=== PATIENT | female | born 1965 | race American Indian/Alaskan Native ===

== ENCOUNTER 2017-01-08 06:49 | Emergency (ER) | payer MEDICAID ==
--- NOTE | 2017-01-08 08:27 | XRay Report ---
AP PELVIS: History: Pelvic pain, injury, vaginal swelling AP view of the pelvis shows normal pelvic contour and soft tissues. The hips are symmetric and within normal limits as are the sacroiliac joints. IMPRESSION: Normal pelvis.
--- NOTE | 2017-01-08 08:28 | XRay Report ---
RIGHT WRIST, 2 VIEWS: History: wrist pain, injury. Routine views demonstrate the carpal bones to be well mineralized with well preserved bony mineralization and interosseous joint spaces. The carpal and adjacent articular bones have normal contours. The surrounding soft tissues are unremarkable. IMPRESSION: Unremarkable right wrist.
--- NOTE | 2017-01-08 08:29 | XRay Report ---
RIGHT FOREARM, 2 views: History: Injury, pain. A transverse displaced fracture through the mid to distal shaft of the right radius is demonstrated. There is 1.3 cm medial displacement at the fracture site. No calcified callus. The radial head is intact. The ulna is unremarkable. Soft tissue swelling. IMPRESSION: Mildly displaced right radial shaft fracture.
[2017-01-08 08:34] LABS: Basophils % (Auto) 0.2 % (0.0-1.8); Eosinophils % (Auto) 3.6 % (0.0-4.3); Hematocrit 36.6 % (30.3-42.9); Hemoglobin 11.9 gm/dl (10.1-14.3); Mean Corpuscular HGB Conc 32 % (30-34); Mean Corpuscular Hemoglobin 32 pg (28-32); Mean Corpuscular Volume 98 fl (79-97); Platelet Count 174 K/mm3 (140-440); Red Blood Count 3.74 M/mm3 (3.65-5.03); Red Cell Distribution Width 14.5 % (13.2-15.2); White Blood Count 8.9 K/mm3 (4.5-11.0)
[2017-01-08 08:53] LABS: Albumin 3.5 g/dL (3.9-5); Albumin/Globulin Ratio 1.2 %; Alkaline Phosphatase 42 units/L (35-129); Anion Gap 14 mmol/L; BUN/Creatinine Ratio 17.77; Bilirubin,Total < 0.20 mg/dL (0.1-1.2); Blood Urea Nitrogen 16 mg/dL (7-17); Calcium 8.8 mg/dL (8.4-10.2); Carbon Dioxide 25 mmol/L (22-30); Chloride 107.1 mmol/L (98-107); Glucose 86 mg/dL (65-100); Potassium 4.4 mmol/L (3.6-5.0); Sodium 142 mmol/L (137-145); Total Protein 6.5 g/dL (6.3-8.2)
[2017-01-08 09:37] LABS: Alanine Aminotransferase 11 units/L (7-56)
[2017-01-08] MEDS ORDERED: MORPHINE IV ONE (09:45)
[2017-01-08] MEDS ORDERED: BOOSTRIX IM ONE (09:46)
[2017-01-08] MEDS ORDERED: XYLOCAINE 1% 20 mL INFILTRATI ONE (10:36)
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
[2017-01-08] MEDS ORDERED: NACL 0.9% 500 ML IR ONE (12:03)
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
--- NOTE | 2017-01-08 12:22 | Cat Scan Report ---
CT SCAN OF THE CERVICAL SPINE: HISTORY: Neck pain. TECHNIQUE: Contiguous 1.25 mm axial images of the cervical spine were obtained. Sagittal and coronal reformatted images. FINDINGS: There is normal alignment of the cervical spine. The body, pedicles and posterior ligaments appear normal. No evidence of fracture or subluxation is seen. Mild to moderate degenerative disc disease is identified at C5-6 and C6-7. The spinal canal appears normal. The prevertebral soft tissues appear normal. IMPRESSION: Unremarkable CT of the cervical spine. Mild degenerative changes. No acute injury is noted.
[2017-01-08 13:47] LABS: Bilirubin,Urine NEG (Negative); Blood,Urine NEG (Negative); Ketones,Urine NEG (Negative); Leukocyte Esterase,Urine TR (Negative); Mucus,Urine FEW /HPF; Nitrite,Urine NEG (Negative); Protein,Urine <15 mg/dL mg/dL (Negative); Urobilinogen,Urine < 2.0 mg/dL (<2.0)
[2017-01-08 13:59] VITALS: BP 109/64
== END 2017-01-08 14:27 | disposition home or self-care (01) ==
LOC: ED 06:49
DX: S52.391A Other fracture of shaft of radius, right arm, initial encounter for closed fracture (principal); S71.112A Laceration without foreign body, left thigh, initial encounter; G45.9 Transient cerebral ischemic attack, unspecified; R56.9 Unspecified convulsions; F17.200 Nicotine dependence, unspecified, uncomplicated; Y04.0XXA Assault by unarmed brawl or fight, initial encounter; Y93.89 Activity, other specified; Y92.89 Other specified places as the place of occurrence of the external cause; Y99.8 Other external cause status
CPT/HCPCS: 12001; 29105; 36415; 70450; 72125; 72170; 73090; 73100; 74177; 80053; 81001; 85025; 90471; 90715; 96374; 99285; J2270; Q9967

== ENCOUNTER 2017-01-11 19:35 | Emergency (ER) | payer MEDICAID ==
[2017-01-12] MEDS ORDERED: MOTRIN PO ONE (00:44)
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
--- NOTE | 2017-01-12 02:46 | XRay Report ---
FINAL REPORT EXAM: XR HAND 3+V RT HISTORY: pain...RIGHT HAND PAIN COMPARISON: Right forearm from the same date. FINDINGS: Three views the right hand obtained. Casting material is in place for radial fracture. Casting material somewhat obscures bony detail. Bony structures are intact. Joint spaces are preserved. No acute fracture dislocation. IMPRESSION: No acute bony abnormality.
[2017-01-12] MEDS ORDERED: NORCO 5/325 PO ONE (03:03)
[2017-01-12 05:59] VITALS: BP 97/54
== END 2017-01-12 02:30 | disposition home or self-care (01) ==
LOC: ED 19:35
DX: S52.501G Unspecified fracture of the lower end of right radius, subsequent encounter for closed fracture with delayed healing (principal); I25.2 Old myocardial infarction; Z86.73 Personal history of transient ischemic attack (TIA), and cerebral infarction without residual deficits; X58.XXXD Exposure to other specified factors, subsequent encounter

== ENCOUNTER 2017-01-21 05:52 | Day surgery (SDC) | payer MEDICAID ==
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
[~2017-01-21 05:52] MED LIST: MARCAINE-EPI 0.5%-1:200,000 INFILTRATI ONE; ceFAZolin 2 GM in NACL 0.9% 100 ML IV NR
[2017-01-21] MEDS ORDERED: NEO SYNEPHRINE/NS Syringe(OR USE) IV ONE (07:00)
[2017-01-21] MEDS ORDERED: NACL BACTERIOSTATIC INFILTRATI ONE (07:00)
[2017-01-21] MEDS ORDERED: SUBLIMAZE ONE (07:19)
[2017-01-21] MEDS ORDERED: DIPRIVAN 10 MG/ML IV ONE (07:19)
[2017-01-21] MEDS ORDERED: DECADRON ONE (07:22)
[2017-01-21] MEDS ORDERED: XYLOCAINE MPF 2% ONE (07:22)
[2017-01-21] MEDS ORDERED: ZOFRAN ONE (07:23)
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
--- NOTE | 2017-01-21 07:38 | Anesthesia Day of Surgery ---
Anesthesia Day of Surgery - Day of Surgery Patient Examined: Yes Patient H&P Reviewed: Yes Patient is NPO: Yes
[2017-01-21] MEDS ORDERED: ANCEF/STERILE WATER 2 GM/20 ML 2 GM/20 ML SYRINGE IV ONE (08:27)
[2017-01-21] MEDS ORDERED: LACTATED RINGERS 1,000 ML IV SCH (09:00)
[2017-01-21] MEDS ORDERED: NEURONTIN PO NR (09:00)
[2017-01-21] MEDS ORDERED: PEPCID PO NR (09:00)
[2017-01-21] MEDS ORDERED: ANCEF/STERILE WATER 2 GM/20 ML IV NR (09:00)
[2017-01-21] MEDS ORDERED: VERSED IV NR (09:00)
[2017-01-21] MEDS ORDERED: MARCAINE-EPI/PF 0.5%-1:200,000 INFILTRATI ONE ×2 (09:17)
[2017-01-21] MEDS ORDERED: MARCAINE-EPI 0.5%-1:200,000 INFILTRATI ONE (09:46)
[2017-01-21] MEDS: DILAUDID IV PRN ×3 (10:06→10:26)
[2017-01-21] MEDS ORDERED: TORADOL IV PRN (10:10)
[2017-01-21] MEDS ORDERED: DILAUDID ONE (10:10)
[2017-01-21] MEDS ORDERED: DEMEROL IV PRN (10:10)
[2017-01-21] MEDS ORDERED: ZOFRAN IV PRN (10:10)
--- NOTE | 2017-01-21 10:13 | XRay Report ---
Right forearm in OR: ORIF. AP and lateral views demonstrate hardware fixation of the fractured radius shaft. The bones are in good alignment and apposition.
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
[2017-01-21] MEDS ORDERED: TORADOL ONE (10:29)
[2017-01-21] MEDS ORDERED: BENADRYL IV NR (11:30)
[2017-01-21 14:47] VITALS: BP 104/65
== END 2017-01-21 13:15 | disposition home or self-care (01) ==
LOC: OR 05:52
PROVIDERS: ATTEND Orthopaedic Surgery
DX: S52.301A Unspecified fracture of shaft of right radius, initial encounter for closed fracture (principal); Y09 Assault by unspecified means; Y08.89XA Assault by other specified means, initial encounter; Y93.89 Activity, other specified; Z86.73 Personal history of transient ischemic attack (TIA), and cerebral infarction without residual deficits; Y92.89 Other specified places as the place of occurrence of the external cause; Y99.8 Other external cause status
CPT/HCPCS: 25607; 73090; C1713; J0690; J1100; J1170; J1200; J1885; J2250; J2405; J2704; J3010; J7120; J2370

== ENCOUNTER 2017-03-06 10:16 | Outpatient (CLI) | payer MEDICAID ==
--- NOTE | 2017-03-06 11:08 | XRay Report ---
RIGHT FOREARM RADIOGRAPHS INDICATION: Displaced transverse fracture of right radius shaft. COMPARISON: 01/21/2017. FINDINGS: AP and lateral right forearm radiographs demonstrate interval plate and screw stabilization of possibly comminuted right radial mid shaft fracture with now anatomic alignment. Normal remainder exam. CONCLUSION: Interval open reduction and internal fixation of right radial shaft fracture, as described. Thank you for the opportunity to participate in this patient's care.
== END 2017-03-06 10:17 | disposition home or self-care (01) ==
LOC: XRAY 10:16
PROVIDERS: ATTEND Orthopaedic Surgery
DX: S52.321A Displaced transverse fracture of shaft of right radius, initial encounter for closed fracture (principal); X58.XXXA Exposure to other specified factors, initial encounter; Y93.89 Activity, other specified; Y92.89 Other specified places as the place of occurrence of the external cause; Y99.8 Other external cause status